=== PATIENT | male | born 2000 | race Caucasian/White ===

== ENCOUNTER 2019-11-01 10:52 | Outpatient (CLI) | payer MEDICAID ==
--- NOTE | 2019-11-01 11:17 | XRAY Report ---
Reason: LT KNEE PAIN NO TRAUMA Procedure Date: 11/01/2019 Accession Number: [id number] / [id number] Procedure: XR - Knee 4 View LT CPT Code: Final Report FULL RESULT: EXAM: LEFT KNEE RADIOGRAPHY EXAM DATE: 11/01/2019 11:07 AM. CLINICAL HISTORY: Left knee pain no trauma. COMPARISON: None. TECHNIQUE: 4 views. FINDINGS: Bones: Normal. No fractures or bone lesions. Joints: There is a small joint effusion. No dislocation. Soft Tissues: Normal. No soft tissue swelling. IMPRESSION: Examination positive for joint effusion. RADIA
== END 2019-11-01 10:53 | disposition home or self-care (01) ==
LOC: DI 10:52
PROVIDERS: ATTEND Physician Assistant Medical
DX: M25.462 Effusion, left knee (principal); M25.562 Pain in left knee

== ENCOUNTER 2019-11-02 14:00 | Outpatient (CLI) | payer MEDICAID ==
[2019-11-02 14:11] LABS: BASOPHILS # (AUTO) 0.1 10^3/uL (0.0-0.1); BASOPHILS % (AUTO) 1.2 %; EOSINOPHILS # (AUTO) 0.3 10^3/uL (0.0-0.7); EOSINOPHILS % (AUTO) 4.6 %; HGB - HEMOGLOBIN 14.6 g/dL (14.0-18.0); LYMPHOCYTES # (AUTO) 1.5 10^3/uL (1.5-3.5); LYMPHOCYTES % (AUTO) 20.6 %; MEAN CORPUSCULAR HEMOGLOBIN 31.3 pg (27.0-31.0); MEAN CORPUSCULAR HGB CONC 33.2 g/dL (32.0-36.0); MEAN CORPUSCULAR VOLUME 94.4 fL (80.0-94.0); MEAN PLATELET VOLUME 10.6 fL (7.4-11.4); MONOCYTES # (AUTO) 0.8 10^3/uL (0.0-1.0); MONOCYTES % (AUTO) 10.9 %; NEUTROPHILS # (AUTO) 4.6 10^3/uL (1.5-6.6); NEUTROPHILS % (AUTO) 61.8 %; PLT - PLATELET COUNT 279 10^3/uL (130-450); RED BLOOD COUNT 4.66 10^6/uL (4.70-6.10); RED CELL DISTRIBUTION WIDTH 12.9 % (12.0-15.0); WHITE BLOOD COUNT 7.4 x10^3/uL (4.8-10.8)
[2019-11-02 15:05] LABS: RHEUMATOID FACTOR NEGATIVE (Negative)
== END 2019-11-02 14:01 | disposition home or self-care (01) ==
LOC: LAB 14:00
PROVIDERS: ATTEND Physician Assistant Medical
DX: M25.562 Pain in left knee (principal)
CPT/HCPCS: 36415; 81599; 84550; 85025; 85651; 86140; 86430